=== PATIENT | female | born 1995 | race Caucasian/White ===

== ENCOUNTER → 2017-05-12 | Outpatient (CLI) | payer BC ==
[2017-05-12 15:00] LABS: ALT 23 U/L (9-52); AST 20 U/L (14-36); Albumin 4.9 g/dL (3.5-5.0); Alkaline Phosphatase 73 U/L (38-126); Anion Gap 14 mmol/L; Blood Urea Nitrogen 16 mg/dL (7-17); Calcium 10.4 mg/dL (8.4-10.2); Carbon Dioxide 23 mmol/L (22-30); Chloride 104 mmol/L (98-107); Glucose 82 mg/dL (74-99); Potassium 4.3 mmol/L (3.5-5.1); Sodium 141 mmol/L (137-145); Total Bilirubin 0.5 mg/dL (0.2-1.3)
[2017-05-12 19:20] LABS: Vitamin D 25 Hydroxy 16.9 ng/mL (30.0-100.0)
[2017-05-12 19:52] LABS: Parathyroid Hormone Intact 19.9 pg/mL (14.0-72.0)
[2017-05-12 20:24] LABS: ACTH 7.09 pg/mL (0.00-45.99)
== END | disposition home or self-care (01) ==
LOC: LABWHC1 14:13
PROVIDERS: ATTEND Internal Medicine Endocrinology, Diabetes & Metabolism
DX: E83.52 Hypercalcemia (principal); R53.83 Other fatigue
CPT/HCPCS: 36415; 80053; 82024; 82306; 82607; 83970; 84146